=== PATIENT | male | born 1990 | race Caucasian/White ===

== ENCOUNTER 2016-11-27 10:22 | Emergency (ER) | payer BC | END 2016-11-27 13:17 | disposition home or self-care (01) | LOC: ER 10:22 | DX: M54.10 Radiculopathy, site unspecified (principal); R20.0 Anesthesia of skin; F17.210 Nicotine dependence, cigarettes, uncomplicated; Z79.899 Other long term (current) drug therapy | CPT/HCPCS: 72040; 96372; 99283-25 ==